=== PATIENT | female | born 2000 | race Caucasian/White ===

== ENCOUNTER 2024-01-28 09:01 | Emergency (ER) | payer MEDICAID ==
[~2024-01-28] VITALS: Ht 167.6 cm; Wt 84.0 kg
[2024-01-28 09:08] VITALS: O2SAT 98
[2024-01-28] MEDS ORDERED: NIRM1TAB8 PO (10:29)
[2024-01-28 10:49] VITALS: BP 118/70; PULSE 99; RESP 18; TEMP 37.72524; O2SAT 98
== END 2024-01-28 11:13 | disposition home or self-care (01) ==
LOC: ER 09:01
DX: U07.1 COVID-19 (principal)
CPT/HCPCS: 99283